=== PATIENT | male | born 1970 | race Caucasian/White ===

== ENCOUNTER 2020-09-25 17:58 | Emergency (ER) | payer OTHER, SELFPAY ==
[2020-09-25 17:59] VITALS: BP 201/121; PULSE 91; RESP 16; TEMP 36.7; O2SAT 97
[2020-09-25 18:00] VITALS: BP 201/121; PULSE 89; RESP 16; TEMP 36.7; O2SAT 96; BMI 28.6
--- NOTE | 2020-09-25 18:09 | EKG12_ITS ---
Test Reason : HYPERTENSION Blood Pressure : / mmHG Vent. Rate : 081 BPM Atrial Rate : 081 BPM P-R Int : 162 ms QRS Dur : 096 ms QT Int : 374 ms P-R-T Axes : 057 -07 025 degrees QTc Int : 434 ms Normal sinus rhythm Normal ECG Confirmed by AARON PLAZA, CARLENE ([id number]), medical staff coordinator SHAJI GARCIA ([id number]) on 09/30/2020 10:44:56 AM Referred By: BESSIE Confirmed By:CARLENE WALKER MD
--- NOTE | 2020-09-25 18:09 | CT_ITS ---
STUDY: CT BRAIN WITHOUT CONTRAST REASON FOR EXAM: Male, 49 years old. TINGLING TO LEFT SIDE OF HEAD TODAY/FEELS and amp;quot;OFF and amp;quot;/ELEV HTN RADIATION DOSAGE (If Supplied By Facility): CTDIvol = ( 44.99 ) mGy, DLP = ( 829.85 ) mGycm TECHNIQUE: Transaxial CT imaging of the brain was performed without administration of intravenous contrast material. Individualized dose optimization techniques were used for this CT. COMPARISON: No relevant priors. FINDINGS: Normal soft tissue structures. Normal calvarium. Normal size ventricles and extra-axial spaces for the patient''s age. Normal white matter tracts of the cerebral hemispheres. Normal basal ganglia and thalami. Normal brainstem. Normal cerebellum. There is no intracranial hemorrhage. There are no findings of an acute ischemic infarction. Mucosal thickening in the inferior recess of the right frontal sinus. CT/Brain/Head without Contrast IMPRESSION: Normal unenhanced CT scan of the brain. Mucosal thickening in the inferior recess of the right frontal sinus. Electronically Signed: Renetta Soares MD at 20:06 EST , Service support ,
--- NOTE | 2020-09-25 18:21 | ED.DCSUM_ITS ---
History of Present Illness Chief Complaint: Hypertension Informant: Patient Onset: Today Context: Gradual Onset Timing: Intermittent Current Severity: Mild Maximum Severity: Mild Narrative: Patient is a 49-year-old male was otherwise healthy on no daily medications who presents to the emergency department concerned with elevated blood pressure. Patient states that today, he had some mild head pressure. He states he took his blood pressure and it was 200 systolic. He states he then had a momentary change in sensation of his left scalp. He states it is tingling. He states it was very fleeting. He normally has blood pressure between 120 and 140. He is never been on antihypertensives. He states he is otherwise been in his normal state of health. He denies visual change, trouble with speech, chest pain, orthopnea. He states that he felt very anxious and felt like it was making his blood pressure increase. Prior similar symptoms: No Recent Illness/Hospitalization: No Past Medical History - Allergies and Home Meds Allergies/Adverse Reactions: Allergies No Known Allergies Allergy (Verified 09/25/20 18:03) Primary Care Physician: Bladimir Martin MD [Primary Care Provider] - 3-5 Days Prior records reviewed: Yes Past Medical History: None Surgical History: noncontributory Review of Systems General: Denies: Chills, Fever, Sweats Eyes: Denies: Visual changes - bilaterally, Diplopia ENT: Denies: Rhinorrhea, Sore throat Cardiovascular: Denies: Chest pain, Palpitations Respiratory: Denies: Dyspnea, Cough, Dyspnea on exertion Gastrointestinal: Denies: Abdominal pain, Nausea, Vomiting, Diarrhea, Melena, Hematochezia Genitourinary: Denies: Dysuria, Hematuria, Frequency Musculoskeletal: Denies: Back pain, Extremity Pain Skin: Denies: Rash, Wounds Neurological: Denies: Headache, Weakness, Numbness Physical Exam Vital Signs/Narrative: Vital Signs Temp Pulse Resp BP Pulse Ox 09/25/20 18:00 98.0 F 89 16 201/121 H 96 09/25/20 17:59 98.0 F 91 16 201/121 H 97 Inital Vital Signs reviewed: Yes General: Well nourished, Well developed, No Acute Distress Head: Normocephalic, Atraumatic Eyes: Perrl, EOMI ENT: Moist mucous membranes, No rhinorrhea Neck: Supple, Nontender Cardiovascular: Regular rate, Regular rhythm, No murmurs Respiratory: No distress, CTA bilaterally, Chest nontender Abdomen: Soft, Nontender, Nondistended, Normal bowel sounds Back: Nontender, Normal Inspection Extremities: Nontender, No edema Skin: Normal color, No rash Neurological: Alert, Oriented x3, Cranial nerves II-XII grossly intact, Normal Strength, Normal Sensation Psychological: Normal affect, Normal Mood Diagnostic/Tx/Re-eval Clinical Impression(s) from Imaging Studies Brain CT 09/25/20 18:09 IMPRESSION: Normal unenhanced CT scan of the brain. Mucosal thickening in the inferior recess of the right frontal sinus. Electronically Signed: Renetta Soares MD at 20:06 EST , Service support , Abnormal Lab Results 09/25/20 09/25/20 18:34 18:34 WBC 7.4 RBC 4.54 L Hgb 15.2 Hct 43.3 MCV 95.4 H MCH 33.5 H MCHC 35.1 RDW Std Deviation 41.8 RDW Coeff of [place]ab[place] 12.0 Plt Count 253 MPV 10.6 Immature Gran % (Auto) 0.300 Neut % (Auto) 60.4 Lymph % (Auto) 24.5 [place] % (Auto) 12.5 H Eos % (Auto) 1.6 Baso % (Auto) 0.7 Absolute Neuts (auto) 4.5 Absolute Lymphs (auto) 1.81 Nucleated RBC % 0 Sodium 136 Potassium 3.8 Chloride 102 Carbon Dioxide 29.0 Anion Gap 5 BUN 12 Creatinine 1.04 Estim Creat Clear Calc 75.83 Est GFR (MDRD) Af Amer 97 Est GFR (MDRD) Non-Af 80 BUN/Creatinine Ratio 11.5 Glucose 95 Calcium 10.0 - Rhythm Strip Rhythm Strip: Sinus Rhythm Rate: 80 Ectopy: None - EKG Initial EKG Interpretation: Sinus Rhythm, No Acute Injury Pattern Prior: No Prior - Medical Decision Making Patient presents with elevated blood pressure. He has no history of hypertension. On arrival, he is a blood pressure of 200 systolic. Without intervention, his repeat blood pressure is [address] was obtained was unremarkable. Screening labs were obtained were unremarkable. EKG was sinus rhythm without acute ischemia. I did have a long conversation with the patient. He states that his blood pressure has been slowly trending up over the past few months. I did discuss options and he wants to attempt starting a low-dose antihypertensive. I do feel that this is reasonable. He is going to follow-up with his PCP this week and will be started on lisinopril. He will be discharged home. Impression 1. Hypertension ED Disposition - Plan for ED Patient: Instructions: ED Hypertension, New (Begin Treatment) Prescriptions: Lisinopril [Zestril] 5 mg PO DAILY #30 tab Prescription Printed Referrals: Bladimir Martin MD [Primary Care Provider] - 3-5 Days
[2020-09-25 18:57] LABS: Absolute Lymphocyte Count 1.81 X10^3/uL (0.83-4.51); Absolute Neutrophil Count 4.5 X10^3/uL (2.0-7.7); Basophil# 0.05 X10^3/uL; Basophil% 0.7 % (0-1); Eosinophil# 0.12 X10^3/uL; Eosinophils% 1.6 % (0-5); Hematocrit 43.3 % (40-54); Hemoglobin 15.2 g/dL (13.0-16.5); Lymphocyte # 1.81 X10^3/ul (4.0); Lymphocyte % 24.5 % (19-41); Mean Corp Hgb Conc 35.1 g/dL (32-36); Mean Corpuscular Hgb 33.5 pg (27.0-32.0); Mean Corpuscular Volume 95.4 fL (80-94); Mean Platelet Vol. 10.6 fl (6.2-12.0); Monocyte# 0.92 X10^3/uL; Monocyte% 12.5 % (0-10); NRBC Flagged by Analyzer 0 % (0-5); Neutrophil # 4.46 X10^3/uL (2.7-7.7); Neutrophil % 60.4 % (47-70); Platelet Count 253 K/mm3 (150-450); RBC Distribution Width SD 41.8 fl (35.1-43.9); Red Blood Count 4.54 M/mm3 (4.6-6.2); White Blood Count 7.4 K/mm3 (4.4-11.0)
[2020-09-25 18:59] VITALS: BP 160/95
[2020-09-25 19:00] LABS: POSITIVE COUNT NO; POSITIVE DIFFERENTIAL NO; POSITIVE MORPHOLOGY NO
[2020-09-25 19:08] LABS: Anion Gap 5 (5-15); BUN 12 mg/dL (7-18); BUN/Creat Ratio 11.5 RATIO (10-20); Chloride 102 mmol/L (98-107); Creatinine, Serum 1.04 mg/dL (0.70-1.30); EST Glomerular Filtration Rate 80 mL/min (>60); Est Glom Filt Rate - Afr Amer 97 mL/min (>60); Estimated Creatinine Clearance 75.83 ml/min; Glucose 95 mg/dL (74-106); Potassium 3.8 mmol/L (3.5-5.1); Sodium Level 136 mmol/L (136-145)
== END 2020-09-25 20:20 | disposition home or self-care (01) ==
LOC: ED 18:49
PROVIDERS: Emergency Provider Emergency Medicine; PCP Internal Medicine
DX: I10 Essential (primary) hypertension (principal)
CPT/HCPCS: 70450; 80048; 85025; 93005; 99283